=== PATIENT | female | born 1960 | race African-American/Black ===

== ENCOUNTER 2023-11-04 13:31 | Inpatient (IN) | payer OTHER, SELFPAY ==
[~2023-11-04] VITALS: Ht 167.6 cm; Wt 75.3 kg
[2023-11-04 14:41] LABS: Chloride 104 mmol/L (98-107); Potassium 4.2 mmol/L (3.5-5.1); Sodium 137 mmol/L (136-145)
[2023-11-04 14:42] LABS: Anion Gap 9 (5-15); Calcium 9.4 mg/dL (8.5-10.1); Carbon Dioxide 24 mmol/L (20-30)
[2023-11-04 14:47] LABS: BUN/Creatinine Ratio 8.3 (10.0-20.0); Blood Urea Nitrogen < 5 mg/dL (9-23); Glucose 103 mg/dL (74-106)
[2023-11-04 14:52] LABS: Eosinophils % (auto) 0.5 % (0.0-7.0); Nucleated Red Blood Cells % 0.3 %
[2023-11-04 14:54] LABS: Basophils # (auto) 0.5 10 ^3/uL (0-0.2); Basophils % (auto) 4.3 % (0.0-2.0); Eosinophils # (auto) 0 10 ^3/uL (0-0.8); Hematocrit 43.7 % (36.0-46.0); Hemoglobin 14.8 g/dL (12.2-16.2); Lymphocytes # (auto) 3.4 10 ^3/uL (0.4-5.4); Lymphocytes % (auto) 31.9 % (10.0-50.0); Mean Corpuscular Hgb Conc. 33.8 g/dL (32.0-36.0); Mean Corpuscular Volume 106.5 fL (80.0-100.0); Monocytes % (auto) 9.5 % (0.0-12.0); Neutrophils # (auto) 5.7 10 ^3/uL (1.6-8.6); Neutrophils % (auto) 53.8 % (37.0-80.0); Red Blood Cells 4.11 10^6/uL (4.0-5.20); Red Cell Distribution Width 13.8 % (11.8-14.3); White Blood Cell 10.7 10^3/uL (4.4-10.8)
[2023-11-04] MEDS: ENOXAPARIN SOD 80 MG/0.8ML SYRINGE SC ONE (16:57)
[2023-11-04 17:55] LABS: Urine Bacteria None Seen /hpf (None Seen)
[2023-11-04] MEDS ORDERED: ONDANSETRON HCL 4 MG/2 ML VIAL IV PRN (18:00)
[2023-11-04] MEDS ORDERED: ACETAMINOPHEN 325 MG TAB PO PRN (18:00)
[2023-11-04] MEDS ORDERED: ONDA-188 PO (18:02)
[2023-11-04] MEDS ORDERED: CIPR500T4 PO (18:02)
[2023-11-04 18:09] LABS: Urine Blood Negative /uL (Negative); Urine Clarity Clear (Clear); Urine Color Yellow (Yellow); Urine Hyaline Cast FEW /lpf (0 - 2); Urine Mucus FEW (None Seen); Urine Protein, UAD TRACE (Negative); Urine Specific Gravity 1.019 (1.001-1.035); Urine Urobilinogen Normal (Negative); Urine WBC 18 /hpf (0 - 5); Urine pH 5.5 (5.0-9.0)
[2023-11-04] MEDS: KETOROLAC TROMETH 30 MG/ML 1ML VIAL IV ONE (19:36)
[2023-11-04] MEDS: PANTOPRAZOLE 40 MG/10 ML VIAL INJ IV ONE (19:50)
[2023-11-04] MEDS: cefTRIAXone 1GM/50ML D5W 50 ML IV ONE (19:50)
[2023-11-04] MEDS: HYDROcodone-ACET 5/325MG TAB PO PRN (20:18)
[2023-11-04] MEDS: SODIUM CHLORIDE 0.9% 1,000 ML IV ONE (20:18)
[2023-11-04] MEDS: DICYCLOMINE HCL 10 MG CAP PO ONE (20:19)
[2023-11-04 23:53] VITALS: BP 150/89; PULSE 100; RESP 22; TEMP 98.3; O2SAT 100
[2023-11-05] MEDS: DICYCLOMINE HCL 10 MG CAP PO PRN (00:11)
[2023-11-05] MEDS: KETOROLAC TROMETH 30 MG/ML 1ML VIAL IV PRN (00:13)
[2023-11-05] MEDS: SODIUM CHLORIDE 0.9% 1,000 ML IV SCH (00:27)
[2023-11-05 05:00] VITALS: BP 125/74; PULSE 113; RESP 20; TEMP 98.2; O2SAT 97
[2023-11-05] MEDS ORDERED: ROPI1TAB78 PO (06:36)
[2023-11-05] MEDS ORDERED: METH100035 IJ (06:39)
[2023-11-05] MEDS ORDERED: PERCOT PO (06:39)
[2023-11-05 07:39] LABS: Basophils # (auto) 0 10 ^3/uL (0-0.2); Hemoglobin 12.1 g/dL (12.2-16.2); Lymphocytes # (auto) 1.8 10 ^3/uL (0.4-5.4); Monocytes # (auto) 0.7 10 ^3/uL (0-1.3); Nucleated Red Blood Cells % 0.1 %
[2023-11-05 07:41] LABS: Basophils % (auto) 0.3 % (0.0-2.0); Eosinophils # (auto) 0.1 10 ^3/uL (0-0.8); Eosinophils % (auto) 2.2 % (0.0-7.0); Hematocrit 36.4 % (36.0-46.0); Lymphocytes % (auto) 29.2 % (10.0-50.0); Mean Corpuscular Hemoglobin 35.9 pg (28.0-32.0); Mean Corpuscular Hgb Conc. 33.2 g/dL (32.0-36.0); Mean Corpuscular Volume 108.2 fL (80.0-100.0); Monocytes % (auto) 10.7 % (0.0-12.0); Neutrophils # (auto) 3.6 10 ^3/uL (1.6-8.6); Neutrophils % (auto) 57.6 % (37.0-80.0); Red Blood Cells 3.36 10^6/uL (4.0-5.20); Red Cell Distribution Width 14.2 % (11.8-14.3); White Blood Cell 6.2 10^3/uL (4.4-10.8)
[2023-11-05 07:44] LABS: Alanine Aminotransferase 29 U/L (7-40); Alkaline Phosphatase 124 U/L (46-116); Anion Gap 7 (5-15); Calcium 8.4 mg/dL (8.5-10.1); Carbon Dioxide 23 mmol/L (20-30); Chloride 107 mmol/L (98-107); Glucose 83 mg/dL (74-106); Potassium 3.5 mmol/L (3.5-5.1); Sodium 137 mmol/L (136-145)
[2023-11-05 07:45] LABS: Albumin 2.8 g/dL (3.2-4.8); Aspartate Aminotransferase 61 U/L (13-40); Bilirubin, Total 0.7 mg/dL (0.2-1.0); Total Protein 5.1 g/dL (5.7-8.2)
[2023-11-05 08:00] VITALS: BP 128/62; PULSE 111; RESP 18; TEMP 98.8; O2SAT 99
[2023-11-05] MEDS: cefTRIAXone 1GM/50ML D5W 50 ML IV SCH (08:15)
[2023-11-05 08:33] LABS: BUN/Creatinine Ratio 9.1 (10.0-20.0); Blood Urea Nitrogen < 5 mg/dL (9-23)
[2023-11-05 09:00] VITALS: BP 128/62; PULSE 111; RESP 18; TEMP 98.8; O2SAT 99
[2023-11-05] MEDS: ENOXAPARIN SOD 40 MG/0.4 ML SYRINGE SC SCH (09:33)
[2023-11-05] MEDS: PANTOPRAZOLE 40 MG/10 ML VIAL INJ IV SCH (09:33)
[2023-11-05 10:06] LABS: CRP High Sensitivity 0.22 mg/dL (<1.0); Magnesium 1.5 mg/dL (1.6-2.6)
[2023-11-05 10:36] LABS: INR 1.18 (0.9-1.15); Partial Thromboplastin Time 29.1 SEC (24.5-34.5); Prothrombin Time 12.4 sec (9.3-11.8)
[2023-11-05 11:44] LABS: Erythrocyte Sedimentation Rate 18 mm/hr (0-20)
[2023-11-05] MEDS: MAGNESIUM SULFATE 1GM/100ML 100 ML IV SCH (12:43)
[2023-11-05 13:00] VITALS: BP 129/63; PULSE 116; RESP 17; TEMP 98.3; O2SAT 95
[2023-11-05] MEDS: MORPHINE SULFATE INJ 2 MG/ml SYRG IV PRN (14:10)
[2023-11-05 17:00] VITALS: BP 134/76; PULSE 116; RESP 17; TEMP 98.4; O2SAT 97
[2023-11-05 21:00] VITALS: BP 130/78; PULSE 115; RESP 19; TEMP 97.7; O2SAT 96
[2023-11-05] MEDS: OXYCODONE W/ ACETAMINOPHEN 5/325MG TABLET PO PRN (21:06)
[2023-11-06 05:00] VITALS: BP 147/85; PULSE 109; RESP 18; TEMP 97.6; O2SAT 97
[2023-11-06 06:35] LABS: Alanine Aminotransferase 28 U/L (7-40); Alkaline Phosphatase 115 U/L (46-116); Anion Gap 8 (5-15); Calcium 8.5 mg/dL (8.7-10.4); Carbon Dioxide 24 mmol/L (20-30); Chloride 110 mmol/L (98-107); Glucose 100 mg/dL (74-106); Magnesium 1.8 mg/dL (1.6-2.6); Sodium 142 mmol/L (136-145)
[2023-11-06 06:37] LABS: Albumin 2.9 g/dL (3.2-4.8); Aspartate Aminotransferase 55 U/L (13-40); Bilirubin, Total 0.7 mg/dL (0.2-1.0); Total Protein 5.4 g/dL (5.7-8.2)
[2023-11-06 06:40] LABS: BUN/Creatinine Ratio 9.8 (10.0-20.0); Blood Urea Nitrogen < 5 mg/dL (9-23)
[2023-11-06 06:54] LABS: Basophils # (auto) 0.1 10 ^3/uL (0-0.2); Basophils % (auto) 1.7 % (0.0-2.0); Eosinophils # (auto) 0.1 10 ^3/uL (0-0.8); Eosinophils % (auto) 3.3 % (0.0-7.0); Hematocrit 36.3 % (36.0-46.0); Lymphocytes # (auto) 1.3 10 ^3/uL (0.4-5.4); Lymphocytes % (auto) 28.3 % (10.0-50.0); Mean Corpuscular Hemoglobin 35.7 pg (28.0-32.0); Mean Corpuscular Hgb Conc. 33.2 g/dL (32.0-36.0); Mean Corpuscular Volume 107.6 fL (80.0-100.0); Monocytes # (auto) 0.5 10 ^3/uL (0-1.3); Monocytes % (auto) 11.2 % (0.0-12.0); Neutrophils # (auto) 2.5 10 ^3/uL (1.6-8.6); Neutrophils % (auto) 55.5 % (37.0-80.0); Nucleated Red Blood Cells % 0.8 %; Red Blood Cells 3.38 10^6/uL (4.0-5.20); Red Cell Distribution Width 14.4 % (11.8-14.3); White Blood Cell 4.5 10^3/uL (4.4-10.8)
[2023-11-06 08:36] VITALS: BP 144/88; PULSE 107; RESP 18; TEMP 98.2; O2SAT 97
[2023-11-06 10:52] LABS: Folate (Folic Acid) 10.25 ng/mL (>5.38)
[2023-11-06] MEDS: POTASSIUM CHL 20 Meq TABLET PO ONE (11:48)
[2023-11-06 12:21] LABS: Free T3 2.37 pg/mL (2.3-4.2)
[2023-11-06 12:22] LABS: Ferritin 33.8 ng/mL (10-291); Free T4 (Free Thyroxine) 1.29 ng/dL (0.89-1.76)
[2023-11-06] MEDS: MAGNESIUM SULFATE 1GM/100ML 100 ML IV ONE (12:27)
[2023-11-06 13:00] VITALS: BP 155/77; PULSE 105; RESP 18; TEMP 98; O2SAT 99
[2023-11-06 17:00] VITALS: BP 125/74; PULSE 83; RESP 16; TEMP 98.2; O2SAT 97
[2023-11-06 21:00] VITALS: BP 130/74; PULSE 104; RESP 19; TEMP 98; O2SAT 95
[2023-11-07 01:00] VITALS: BP 137/93; PULSE 109; RESP 17; TEMP 98.3; O2SAT 94
[2023-11-07 05:00] VITALS: BP 153/93; PULSE 107; RESP 18; TEMP 98; O2SAT 99
[2023-11-07 06:55] LABS: Alanine Aminotransferase 26 U/L (7-40); Albumin 2.7 g/dL (3.2-4.8); Alkaline Phosphatase 99 U/L (46-116); Anion Gap 10 (5-15); Aspartate Aminotransferase 50 U/L (13-40); Calcium 8.4 mg/dL (8.7-10.4); Carbon Dioxide 21 mmol/L (20-30); Chloride 109 mmol/L (98-107); Glucose 84 mg/dL (74-106); Magnesium 1.8 mg/dL (1.6-2.6); Potassium 3.4 mmol/L (3.5-5.1); Sodium 140 mmol/L (136-145)
[2023-11-07 06:56] LABS: Bilirubin, Total 0.4 mg/dL (0.2-1.0)
[2023-11-07 07:02] LABS: Blood Urea Nitrogen < 5 mg/dL (9-23)
[2023-11-07 07:14] LABS: Basophils # (auto) 0 10 ^3/uL (0-0.2); Eosinophils # (auto) 0.1 10 ^3/uL (0-0.8); Lymphocytes # (auto) 0.9 10 ^3/uL (0.4-5.4); Monocytes # (auto) 0.4 10 ^3/uL (0-1.3); Neutrophils # (auto) 1.7 10 ^3/uL (1.6-8.6); Nucleated Red Blood Cells % 0.2 %
[2023-11-07 07:16] LABS: Basophils % (auto) 1.1 % (0.0-2.0); Eosinophils % (auto) 4.3 % (0.0-7.0); Hematocrit 28.5 % (36.0-46.0); Hemoglobin 11.4 g/dL (12.2-16.2); Lymphocytes % (auto) 27.6 % (10.0-50.0); Mean Corpuscular Hemoglobin 46.7 pg (28.0-32.0); Mean Corpuscular Volume 116.4 fL (80.0-100.0); Monocytes % (auto) 13.1 % (0.0-12.0); Neutrophils % (auto) 53.9 % (37.0-80.0); Red Blood Cells 2.45 10^6/uL (4.0-5.20); Red Cell Distribution Width 14.6 % (11.8-14.3); White Blood Cell 3.1 10^3/uL (4.4-10.8)
[2023-11-07 07:18] LABS: Mean Corpuscular Hgb Conc. 40.1 g/dL (32.0-36.0)
[2023-11-07 07:48] LABS: Platelet Estimate Adequate
[2023-11-07 09:00] VITALS: BP 137/109; PULSE 101; RESP 20; TEMP 98.2; O2SAT 97
[2023-11-07 09:30] VITALS: BP 134/80; PULSE 108
[2023-11-07] MEDS: POTASSIUM CHL 20 Meq TABLET PO ONE (09:58)
[2023-11-07 12:25] VITALS: BP 133/78; PULSE 107; RESP 18; TEMP 98.2; O2SAT 98
[2023-11-07 13:07] LABS: Anti-Centromere B Antibody <0.2 AI (0.0-0.9); Anti-Jo-1 Antibody <0.2 AI (0.0-0.9); Anti-dsDNA Antibody <1 IU/mL (0-9); Antichromatin Antibody <0.2 AI (0.0-0.9); Antiscleroderma-70 Antibody <0.2 AI (0.0-0.9); RNP Antibody <0.2 AI (0.0-0.9); Sjogren's Anti-SS-A Antibody <0.2 AI (0.0-0.9); Sjogren's Anti-SS-B Antibody <0.2 AI (0.0-0.9); Smith Antibody <0.2 AI (0.0-0.9)
[2023-11-07] MEDS ORDERED: PANT40TA2 PO (13:07)
[2023-11-07] MEDS ORDERED: CEPH250C PO (13:07)
[2023-11-07] MEDS ORDERED: DICY10CA PO (13:07)
[2023-11-07] MEDS ORDERED: ACET-1882 PO (13:07)
[2023-11-07 17:00] VITALS: BP 115/81; PULSE 103; RESP 20; TEMP 98.4; O2SAT 97
[2023-11-08 12:07] LABS: Adrenocorticotropic Hormone 16.7 pg/mL (7.2-63.3)
== END 2023-11-07 19:00 | disposition home or self-care (01) | DRG 392 ==
LOC: ER 13:35 → OVERFLOW 17:59 → CENTRAL 23:22
PROVIDERS: ADMIT Internal Medicine; ATTEND Internal Medicine
DX: K52.9 Noninfective gastroenteritis and colitis, unspecified (principal); N39.0 Urinary tract infection, site not specified; E44.0 Moderate protein-calorie malnutrition; K57.30 Diverticulosis of large intestine without perforation or abscess without bleeding; R07.9 Chest pain, unspecified; N20.0 Calculus of kidney; E83.42 Hypomagnesemia; M06.9 Rheumatoid arthritis, unspecified; G62.9 Polyneuropathy, unspecified; F41.9 Anxiety disorder, unspecified; K21.9 Gastro-esophageal reflux disease without esophagitis; E87.6 Hypokalemia; R74.01 Elevation of levels of liver transaminase levels; Z88.2 Allergy status to sulfonamides; Z90.710 Acquired absence of both cervix and uterus; Z87.442 Personal history of urinary calculi; Z68.26 Body mass index [BMI] 26.0-26.9, adult; K81.9 Cholecystitis, unspecified
CPT/HCPCS: 36415; 70450; 70490; 74176; 76705; 78226; 80048; 80053; 80061; 81001; 82024; 82088; 82150; 82306; 82607; 82728; 82746; 83516; 83540; 83550; 83690; 83735; 84244; 84439; 84443; 84481; 84484; 85025; 85379; 85610; 85652; 85730; 86141; 86225; 86235; 87045; 87081; 87086; 87177; 87427; 87493; 93005; 93306; 96365; 96372; 96375; C9113; G0378; J1885